=== PATIENT | male | born 1955 | race Caucasian/White ===

== ENCOUNTER → 2017-01-04 | Outpatient (CLI) | payer BC | END | disposition home or self-care (01) | LOC: C.RDSM 12:32 | PROVIDERS: ATTEND Physical Medicine & Rehabilitation Sports Medicine | DX: M25.561 Pain in right knee (principal) ==

== ENCOUNTER 2018-06-02 05:09 | Inpatient (IN) ==
--- NOTE | 2018-05-06 12:29 | Anesthesiology Consultation ---
Date of Service May 06, 2018 Assessment & Plan (1) Encounter for pre-operative examination: Plan: PCP CLEARANCE 05/18/18: "patient is an appropriate candidate for surgery without need for further preoperative testing." Chart Review Chart Review: Acceptable Risk for Surgery and Patient seen in Pre Admission Testing Teaching & Discussion Instructed NPO after midnight before surgery, except medications with 15 cc of water. Medication instructions provided according to the PAT guidelines. History Surgery Operation Date: 06/02/18 10:05 Proposed Procedures p Right Total Knee Arthroplasty - Ezequiel Pandey MD Height/Weight Height: 6 ft Weight: 102.6 kg Allergies Allergy/AdvReac Type Severity Reaction Status Date / Time No Known Allergies Allergy Verified 04/29/18 12:10 Medications Home Medications Medication Instructions Recorded Confirmed Last Taken meloxicam 2 tab PO QAM 04/29/18 04/29/18 Unknown ranitidine HCl 150 mg PO BID 04/29/18 04/29/18 Unknown Past Medical History Medical History Acid reflux Osteoarthritis Past Family History Family History Father Family history of esophageal cancer Mother Family history of breast cancer Past Surgical History Surgical History History of arthroscopy of right knee History of colonoscopy History of endoscopy Past Anesthesia History No Hx of Anesthesia Complications and No Family Hx of Anesthesia Complications History of PONV No Motion Sickness Screening History of Motion Sickness: No Social History Smoking Status: Never smoker Do You Dip or Chew Tobacco: No Hx Alcohol Use: Yes Alcohol type: beer alcohol intake frequency: holidays/special occasions only Hx Substance Use: No substance use type: does not use Exercise / Class Metabolic Activity II 4-5 Yardwork/Stairs/Walk up hill Review of Systems Pt denies any recent chest pain, shortness of breath, palpitations, cough, fever or URI. Physical Exam Vital Signs BP: 106/72 P: 53bpm SPO2: 96% RA T: 98.1 F R: 16 ENMT Mouth: no dental restorations, no chipped teeth and no loose teeth Thyromental Distance: > or= 3.5 Finger Breadths (3.5) Mallampati Class: II Neck normal visual inspection; neck extension not limited Respiratory normal respiratory effort Auscultation: lungs clear to auscultation bilaterally Cardiovascular Rate/Rhythm: regular rhythm and + bradycardic Heart Sounds: no murmur Vessels: no carotid bruit Extremities: no edema Testing Electrocardiogram Date: 05/06/18 Findings: + SB @ (51) Chest X-Ray Date: 05/06/18 Findings: + NAD Laboratory Results 05/06/18 12:50 05/06/18 12:50 Blood Type A Positive 05/06/18 12:50 Antibody Screen NEGATIVE 05/06/18 12:50 PT 10.1 Seconds (9.0-12.0) 05/06/18 12:50 INR 1.0 (0.9-1.1) 05/06/18 12:50 APTT 28.1 Seconds (21.0-31.0) 05/06/18 12:50 Urine Color Yellow 05/06/18 12:50 Urine Appearance Clear (Clear) 05/06/18 12:50 Urine pH 6.0 (4.5-7.5) 05/06/18 12:50 Ur Specific Moore 1.029 (1.000-1.030) 05/06/18 12:50 Urine Protein Negative (Negative) 05/06/18 12:50 Urine Glucose (UA) Negative (Negative) 05/06/18 12:50 Urine Ketones Trace (Negative) H 05/06/18 12:50 Urine Nitrite Negative (Negative) 05/06/18 12:50 Ur Leukocyte Esterase Negative (Negative) 05/06/18 12:50
--- NOTE | 2018-05-06 12:38 | PAT Medication Instructions ---
Medication Instructions Date of Service May 06, 2018 Home Medications meloxicam 2 tab PO QAM ranitidine HCl 150 mg PO BID ASK your surgeon for instructions meloxicam 2 tab PO QAM (to be held x 5 days before surgery per surgeon) Take morning of surgery With a small sip of water, OTHERWISE NOTHING TO EAT OR DRINK AFTER MIDNIGHT: ranitidine HCl 150 mg PO BID Take evening before surgery ranitidine HCl 150 mg PO BID Other Notes If you have any questions please call us at [phone] or [phone] or [phone] or [phone]
--- NOTE | 2018-05-06 13:13 | XRay Report ---
XR chest Pre-admission PA/Lat HISTORY: 62 years-old Male PAT preoperative exam. No acute chest complaints. COMPARISON: None available TECHNIQUE: PA and lateral views of the chest FINDINGS: Cardiac mediastinal and hilar silhouettes are within normal limits. No pneumothorax, pleural effusion , focal airspace consolidation or overt pulmonary edema. Degenerative changes of the shoulders and sp ine. IMPRESSION: No acute process. The above report was generated using voice recognition software. It may contain grammatical, syntax o r spelling errors. Electronically signed by: Reji Johansen M.D. 05/06/2018 1:11 PM
[2018-05-06 13:29] LABS: Basophils # (auto) 0.06 K/uL (0-0.2); Eosinophils # (auto) 0.41 K/uL (0-0.5); Eosinophils % (auto) 6.9 %; Hemoglobin 13.5 g/dL (14.0-18.0); Immature Granulocytes # (auto) 0.01 K/uL (0.00-0.02); Immature Granulocytes % (auto) 0.2 %; Lymphocytes # (auto) 1.91 K/uL (1.2-3.4); Lymphocytes % (auto) 32.4 %; Mean Corpuscular Hgb Conc 32.9 g/dL (32-36); Mean Corpuscular Volume 93.4 fL (80-100); Mean Platelet Volume 9.4 fL (7.4-10.4); Monocytes % (auto) 6.8 %; Neutrophils # (auto) 3.11 K/uL (1.4-6.5); Neutrophils % (auto) 52.7 %; Platelet Count 235 K/uL (130-400); RDW Coefficient of Variation 13.3 % (11.5-14.5); RDW Standard Deviation 45.8 fL (36.4-46.3); Red Blood Count 4.39 M/uL (4.7-6.1)
[2018-05-06 13:32] LABS: BUN Creatinine Ratio 39.8 (10-20); Calcium 9.1 mg/dl (8.5-10.1); Creatinine Clr Calc Pharmacy 117.3 ml/min; Est GFR (African American) 110.8; Est GFR (Non-African American) 95.6; Potassium 4.6 mmol/L (3.5-5.1)
[2018-05-06 13:48] LABS: Partial Thromboplastin Ratio 1.1; Partial Thromboplastin Time 28.1 Seconds (21.0-31.0); Prothrombin Time 10.1 Seconds (9.0-12.0)
[2018-05-06 14:55] LABS: Appearance Urine Clear (Clear); Bilirubin Urine Negative (Negative); Color Urine Yellow; Glucose Urine UA Negative (Negative); Ketones Urine Trace (Negative); Leukocyte Esterase Urine Negative (Negative); Nitrite Urine Negative (Negative); Protein Urine Negative (Negative); Specific Gravity Urine 1.029 (1.000-1.030); Urobilinogen Urine Negative (Negative)
--- NOTE | 2018-05-11 13:58 | History and Physical Report ---
DATE OF ADMISSION: 06/02/2018 CHIEF COMPLAINT: Right knee pain. HISTORY OF PRESENT ILLNESS: This 62-year-old white male presents to the office with his for evaluation of his right knee. He has had significant right knee pain for over a year. It has become swollen at times. He has a history of previous knee arthroscopy with meniscectomy on the right knee many years ago. There has been increasing pain over the last few years. It is now severe with weightbearing. He has tried cortisone injections as well as viscosupplementation injections without lasting improvement. He has also tried activity modification without improvement. No numbness or tingling. Pain is affecting his ADLs. It is worse with weightbearing. Preoperative imaging has been obtained. He elects to proceed with right total knee arthroplasty in hopes of alleviating his discomfort. PAST MEDICAL HISTORY: Significant for osteoarthritis, GERD, and tubular adenoma of the colon. PAST SURGICAL HISTORY: Septoplasty, right knee arthroscopy with partial meniscectomy, colonoscopy. ALLERGIES: NKDA. CURRENT MEDICATIONS: Meloxicam 7.5 mg daily, ranitidine 150 mg p.o. daily, Tylenol p.r.n. FAMILY HISTORY: Unremarkable. Father and uncle are . SOCIAL HISTORY: Patient is employed, . No tobacco use, no ETOH use. REVIEW OF SYSTEMS: A total of 10 systems reviewed and significant only for above stated conditions. PHYSICAL EXAMINATION: GENERAL: Well-developed and well-nourished middle aged white male, in no acute distress, sitting in a chair, alert and oriented. SKIN: Warm and dry, with good turgor. No rashes or lesions. No ecchymosis or erythema. HEENT: Normocephalic and atraumatic. Eyes: PERRLA, EOMI. Nares patent bilaterally, without turbinate enlargement. Oropharynx without erythema or exudate, no lesions noted. Uvula midline. Oral mucosa moist. Good dentition. Fillings are noted. HEART: RRR. No MGR. Bradycardic. LUNGS: Clear to auscultation bilaterally. No crackles, rhonchi, or wheezing. Good air movement. ABDOMEN: Bowel sounds present x4, soft, nontender. No organomegaly. No masses. MUSCULOSKELETAL: Right knee evaluation reveals no intraarticular effusion. He has significant discomfort with palpation over the medial compartment and peripatellar areas. No lateral joint line discomfort today. He has varus alignment. He lacks just a few degrees of terminal extension, flexion to greater than 110 degrees. Strength is 5/5 with good quad tone. Stable collateral ligaments. No defect in the patellar tendon or quadriceps tendon. Ambulatory with a very slightly antalgic gait. NEUROLOGIC: Gross sensation is intact across both lower extremities by soft touch. Cranial nerves II through XII are intact. IMAGING DATA: Radiographic imaging previously obtained shows end-stage DJD of the right knee. Periarticular osteophytes, subchondral sclerosis, and joint space narrowing are all present. End-stage disease worse in the medial compartment and patellofemoral compartment. He is getting lateral subluxation of the tibia. IMPRESSION: Right knee end-stage degenerative joint disease. PLAN: Postoperative prescriptions for Percocet and Coumadin will be provided at discharge from the hospital. Anticipate discharge to home with outpatient services. Prescription was provided for a walker. Preoperative lab work, EKG, and chest x-ray have been ordered. He is also seeing his PCP for medical clearance. Informed written consent will be obtained on the morning of surgery. Call with any other concerns.
[2018-06-02] MEDS: LR 500ML BOLUS, THEN 15ML/HR IV SCH ×3 (05:35→17:38)
[2018-06-02] MEDS ORDERED: ROPIVACAINE 0.5% HCL/PF 150 MG, BUPIVACAINE 0.5% MPF 30 ML, EPINEPHrine 0.15 MG, Ketoro... INFIL SCH (06:00)
[2018-06-02] MEDS ORDERED: TRANEXAMIC ACID 1,000 MG **IV Pre-op IV SCH (06:00)
[2018-06-02] MEDS ORDERED: LR 60ML/HR IV SCH (06:00)
[2018-06-02] MEDS ORDERED: CEFAZOLIN 2000MG 2,000 MG/15 ML SYR IV SCH (06:00)
--- NOTE | 2018-06-02 06:21 | History & Physical Bridge Note ---
Date of Service June 02, 2018 History & Physical Bridge Note I have examined the patient, reviewed the History & Physical and in the interval since the performance of the History & Physical I have noted the following changes of clinical significance:readdressed consent.no issues. no changes noted
[2018-06-02] MEDS ORDERED: BUPIVACAINE 0.5 % 5 MG/1 ML PF 10ML VIAL ONE (06:32)
[2018-06-02] MEDS ORDERED: ROPIVACAINE 0.5% 5 MG/ML 30 ML VIAL ONE (06:32)
[2018-06-02] MEDS ORDERED: fentaNYL citrate 100 MCG/2 ML VIAL ONE (06:35)
[2018-06-02] MEDS ORDERED: MIDAZOLAM HCL 1 MG/ML 2ML VIAL ONE ×2 (06:35→07:16)
[2018-06-02] MEDS ORDERED: LIDOCAINE HCL 2% 2 ML VIAL/AMP(20MG/ML) INFIL ONE (06:49)
[2018-06-02] MEDS ORDERED: PROPOFOL IV EMULSION 10 MG/ML 20 ML VIAL IV ONE ×2 (06:49→08:04)
[2018-06-02] MEDS ORDERED: ORTHO JOINT ANESTHETIC ONE (06:50)
[2018-06-02] MEDS ORDERED: POVIDONE-IODINE OP SOLN 30 ML BTL ONE (06:50)
[2018-06-02] MEDS ORDERED: fentaNYL citrate 100 MCG/2 ML VIAL IV PRN (07:32)
[2018-06-02] MEDS ORDERED: ONDANSETRON INJ 2 MG/ML 2 ML VIAL IV PRN ×2 (07:32→09:51)
[2018-06-02] MEDS ORDERED: ATROPINE SULFATE 0.1 MG/ML 10ML SYR IV PRN (07:32)
[2018-06-02] MEDS ORDERED: ePHEDrine sulfate 50 MG/ML AMP IV PRN (07:32)
[2018-06-02] MEDS ORDERED: PHENYLEPHRINE 100MCG/ML 5ML SYR ONE (07:45)
--- NOTE | 2018-06-02 08:38 | Post Operative Brief Note ---
Immediate Post Op Note v1 Date of Surgery June 02, 2018 Pre & Post Diagnosis Operation Date: 06/02/18 07:15 Pre-Op Diagnosis: Right Knee End-Stage Degenerative Joint Disease Post-Op Diagnosis: Right Knee End-Stage Degenerative Joint Disease Procedure Operation Date: 06/02/18 07:15 Actual Procedures p Right Total Knee Arthroplasty(Right) - Ezequiel Pandey MD Surgeon Ezequiel Pandey MD [facility] Estimated Blood Loss 100 Findings Consistent with Post-Op Diagnosis
--- NOTE | 2018-06-02 08:52 | Operative Report ---
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 Hewas prepped and draped in the usual sterile fashion. Please see Dr. Pandey's operative report for specifics of the procedure. I was present for the entire case from initial patient positioning through final wound closure. Assistance was provided in tissue retraction, hemostasis, trial implant placement, final implant placement, and final wound closure. Patient was taken to the recovery room in satisfactory condition. I attest to the content of the Intraoperative Record and any orders documented therein. Any exceptions are noted below.
--- NOTE | 2018-06-02 09:13 | Anesthesiology Progress Note ---
Date of Service June 02, 2018 Anesthesia Post Procedure Vital Signs Vital Signs: Temp Pulse Pulse Resp BP Pulse Ox 06/02/18 09:10 53 L 15 103/59 L 97 06/02/18 09:00 53 L 12 102/60 100 06/02/18 08:50 65 17 94/52 L 99 06/02/18 08:43 97.0 F L 68 16 110/67 96 06/02/18 05:39 98.4 F 81 18 129/92 95 Pain Intensity Right Knee: Pain Intensity: 2 Notes Mental Status: alert / awake / arousable and participated in evaluation Patient Amnestic to Procedure: Yes Nausea / Vomiting: adequately controlled Pain: adequately controlled Airway Patency, RR, SpO2: stable & adequate BP & HR: stable & adequate Hydration State: stable & adequate Neuraxial Anesthesia: was administered and sensory block is resolving Anesthetic Complications: no major complications apparent and Pt Satisfied with anesthetic care
--- NOTE | 2018-06-02 09:28 | Operative Report ---
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 POSTOPERATIVE DIAGNOSIS: Osteoarthritis with varus and flexion deformity, right knee. OPERATION PERFORMED: Cemented right total knee replacement. SUMMARY OF IMPLANTS: Size 4 posterior cruciate substituting right femur, size 4 mobile bearing tray tibia, oval dome 3 peg patella size 41, tibial insert rotating platform, posterior cruciate stabilized 4 x 15 insert, 2 bags of Palacos G cement. ESTIMATED BLOOD LOSS: 100 mL. CRYSTALLOID: Per anesthesia. PROPHYLAXIS: DVT prophylaxis with Coumadin. PERIOPERATIVE SITUATION: Medically cleared male with intractable knee pain with a varus deformity, chronic ACL deficiency, has severe osteoarthritis, medial compartment extending into patellofemoral joint and lateral compartment. DESCRIPTION OF PROCEDURE: Patient appropriately identified, site verified, consent verified. Antibiotics confirmed as being given. TXA confirmed as being given. The right lower extremity was prepped and draped in the usual routine fashion. Tourniquet inflated to 300 mmHg after exsanguination of limb with a rubber Esmarch bandage for a total of 50 minutes. Midline exposure utilized. Parapatellar arthrotomy performed. Synovectomy completed. Soft tissue releases and osteophytes resected and completed. Distal femur then entered. Cruciates resected. Tibia subluxated. Both menisci resected. Distal femur resected to 12 mm, proximal tibia resected to 4 mm. Extension gap was excellent. Femur was sized between a 5 and a 4, was measured 5, cut 4. Flexion gap was excellent. A box cut was then made, size 4 fit well. The tibia was subluxated, and the broaching and reaming carried out to a size 4 with a 15 mm spacer providing excellent extension and flexion gap control. The patella was sized to 41, it was resected leaving 17 mm. The trial tracked well when the seating holes were made. The wound was then injected with the Orthomix as well as posteriorly and around the incision. The wound was then irrigated. All trial implants removed. The wound was irrigated with Betadine and Pulsavac, the permanent cemented into position. After 12 minutes, the tourniquet deflated. After 14 minutes, the knee flexed. Minor cement removal was required. Wound was irrigated with Betadine and a permanent liner seated and then the knee reduced and closed in 60 degrees of flexion with #2 Vicryl, 2-0 Vicryl, and stainless steel clips. Appropriate dressing applied, and the patient transferred to recovery room in satisfactory condition having tolerated the procedure well. Pathology pending on bone. I attest to the content of the Intraoperative Record and any orders documented therein. Any exception s are noted below.
--- NOTE | 2018-06-02 09:34 | XRay Report ---
TWO VIEWS RIGHT KNEE CLINICAL HISTORY: Postoperative examination. FINDINGS: AP and crosstable lateral portable views of the right knee are obtained. A right knee arthr oplasty is in near anatomic alignment. There has been undersurface remodeling of the patella. No acut e fracture is seen. There are expected postoperative changes around the knee including skin clips, s oft tissue edema, and subcutaneous gas. IMPRESSION: Expected postoperative changes status post right knee arthroplasty. No acute fracture is seen. Electronically signed by: Hakeem Ochoa M.D. 06/02/2018 9:33 AM
[2018-06-02] MEDS ORDERED: METOCLOPRAMIDE HCL INJ 5 MG/ML 2 ML VIAL IV PRN (09:51)
[2018-06-02] MEDS ORDERED: HYDROmorphone INJ 0.5 MG/0.5 ML SYR IV PRN (09:51)
[2018-06-02] MEDS ORDERED: MAGNESIUM HYDROXIDE SUSP 30 ML UDC PO PRN (09:51)
[2018-06-02] MEDS ORDERED: NALOXONE HCL 0.4 MG/1 ML VIAL/CARP IV PRN (09:51)
[2018-06-02] MEDS ORDERED: ALUMINUM/MAGNESIUM SUSP 30 ML UDC PO PRN (09:51)
[2018-06-02] MEDS ORDERED: BISACODYL 10 MG SUPP PR PRN (09:51)
[2018-06-02] MEDS ORDERED: DiphenhydrAMINE HCL 50 MG/ML VIAL IV PRN (09:51)
[2018-06-02] MEDS ORDERED: TAMSULOSIN HCL 0.4 MG CAP PO PRN (09:51)
[2018-06-02] MEDS ORDERED: SODIUM CHLORIDE 0.9% 1000ML 1,000 ML IV SCH (09:51)
[2018-06-02] MEDS: DOCUSATE SODIUM 100 MG CAP PO SCH ×2 (11:12→21:36)
[2018-06-02] MEDS: MULTIVITAMIN TAB PO SCH (11:12)
[2018-06-02] MEDS: ORTHO WARFARIN NOMOGRAM SCH (11:55)
[2018-06-02] MEDS ORDERED: KETOROLAC 30 MG/ML VIAL IV PRN (12:00)
[2018-06-02] MEDS: ACETAMINOPHEN 1,000 MG/100 ML VIAL IV SCH ×2 (13:18→21:36)
--- NOTE | 2018-06-02 13:43 | Progress Note ---
DATE: 06/02/2018 Postop check status post right total knee replacement. Patient is doing well. He denies any chest pain, shortness of breath, fever, chills, nausea, vomiting, headache. Vital signs are stable. He is afebrile. On neurovascular check, femoral sciatic nerve is normal. Wound dressing is clean, dry, and intact. He is eating and drinking well. He has not voided yet. He does not feel full. ASSESSMENT: Doing well. Postop x-ray is excellent. Hep-Lock IV. Mobilize. Try to avoid straight cath if possible. Continue care pathway.
[2018-06-02] MEDS ORDERED: TRANEXAMIC ACID 1,000 MG in 0.9 % SODIUM CHLORIDE 100 ML IV SCH (14:00)
[2018-06-02] MEDS: CEFAZOLIN 2000MG 2,000 MG/15 ML SYR IV SCH ×2 (14:17→22:29)
[2018-06-02] MEDS ORDERED: WARFARIN SOD 5 MG TAB PO ONE (16:00)
[2018-06-02] MEDS: FERROUS GLUCONATE 324 MG TAB PO SCH (16:32)
[2018-06-02] MEDS ORDERED: SENNA 8.6 MG TAB PO SCH (21:00)
[2018-06-03] MEDS: OXYCODONE HCL IR 5 MG TAB (IMMEDIATE RELEASE) PO PRN ×2 (02:03→07:09)
[2018-06-03] MEDS: ACETAMINOPHEN 1,000 MG/100 ML VIAL IV SCH (05:05)
[2018-06-03 06:18] LABS: Hematocrit (blood only) 33.6 % (42-52); Hemoglobin 11.3 g/dL (14.0-18.0); Mean Corpuscular Hgb Conc 33.6 g/dL (32-36); Mean Corpuscular Volume 92.1 fL (80-100); Mean Platelet Volume 9.1 fL (7.4-10.4); Platelet Count 198 K/uL (130-400); RDW Coefficient of Variation 13.1 % (11.5-14.5); RDW Standard Deviation 44.3 fL (36.4-46.3); Red Blood Count 3.65 M/uL (4.7-6.1); White Blood Count 10.34 K/uL (4.8-10.8)
[2018-06-03 06:29] LABS: INR 1.1 (0.9-1.1)
[2018-06-03 06:54] LABS: BUN Creatinine Ratio 23.1 (10-20); Calcium 8.5 mg/dl (8.5-10.1); Creatinine Clr Calc Pharmacy 111.3 ml/min; Est GFR (African American) 108.5; Est GFR (Non-African American) 93.6
[2018-06-03] MEDS: DOCUSATE SODIUM 100 MG CAP PO SCH (07:09)
[2018-06-03] MEDS: FERROUS GLUCONATE 324 MG TAB PO SCH (07:09)
[2018-06-03] MEDS: MULTIVITAMIN TAB PO SCH (07:09)
--- NOTE | 2018-06-03 07:23 | Progress Note ---
DATE: 06/03/2018 SUBJECTIVE: Postop day #1 status post right total knee replacement. The patient is doing well. Denies any fever, chest pain, shortness of breath, nausea, vomiting or headache. OBJECTIVE: Vital signs are stable. He is afebrile. Neurovascular check femoral sciatic nerve is normal. Wound dressing clean, dry and intact. Hematocrit stable at 34. INR is 1.1. ASSESSMENT AND PLAN: Doing well. Discharged to home today, Coumadin 4 mg. Check INR on Wednesday. Follow up in roughly 2 weeks for staple removal.
[2018-06-03] MEDS ORDERED: dexAMETHasone 10 MG in SYRINGE 0 ML IV SCH (08:00)
[2018-06-03] MEDS: ORTHO WARFARIN NOMOGRAM SCH (08:21)
--- NOTE | 2018-06-03 09:00 | Orthopedic Progress Note ---
Date of Service June 03, 2018 Assessment & Plan (1) Status post total knee replacement, right: PT/OT this AM Plan on discharge home today with home health visits for INR checks DVT prophylaxis with Coumadin and TEDs Goal INR 1.8-2.2 Pain control with PO meds Ice with EZ wrap Immobilizer for 1st 48 hrs post op Walker assistance F/u at [facility] in 2 wks for staple removal Subjective Patient is day 1 s/p Right total knee arthroplasty. Doing very well. No complaints. Is ready to go home later today. Denies CP, SOB, Nausea, vomiting , diarrhea, fever, chills or sweats. Dressing clean, dry and intact. States that block "wore off" around 3 am but pain is well controlled with PO meds. Physical Exam 2 Vital Signs (Past 24 Hours): Last Vital Signs Temp 36.7 C 06/03/18 07:44 Pulse 65 06/03/18 07:44 Resp 18 06/03/18 07:44 BP 117/75 06/03/18 07:44 Pulse Ox 93 06/03/18 07:44 Physical Exam: Right Knee: Dressing removed. No drainage noted. Pt able to depict light sensation to touch circumferentially around incision site. Mild edema. No erythema, ecchymosis, warmth or fluctuance noted. Able to perform SLRT. Calf soft and supple w/o tenderness. NV intact in Rt LE. Periph pulses easily palpable. Cap refill < 2 seconds.
--- NOTE | 2018-06-03 09:39 | Discharge Summary ---
CHIEF COMPLAINT: Right knee pain. HISTORY OF PRESENT ILLNESS: Admitted for elective right total knee replacement. Hospital course has been uneventful. The patient is ready for discharge today after PT, OT. PAST MEDICAL HISTORY: Remarkable for osteoarthritis, GERD, tubular adenoma of the colon. PAST SURGICAL HISTORY: Remarkable for septoplasty, right knee arthroscopy, partial meniscectomy, colonoscopies. ALLERGIES: None. PREADMISSION MEDICATIONS: Include meloxicam, ranitidine, Tylenol. Will discontinue the Meloxicam. Add Coumadin and p.r.n. pain medication, see prescription. Keep INR 1.8-2.2. FAMILY HISTORY: Unremarkable. SOCIAL HISTORY: Reveals he is employed. . No tobacco or alcohol use. ASSESSMENT AND PLAN: Overall, doing well, status post right total knee replacement, discharged home today after PT, OT. Discharged on 4 mg of Coumadin. Check INR on Wednesday. P.r.n. use of pain medication, see prescription.
[2018-06-03] MEDS ORDERED: WARFARIN SOD 5 MG TAB PO SCH ×2 (16:00)
--- NOTE | 2018-06-03 17:33 | Anesthesiology Progress Note ---
Date of Service June 03, 2018 Anesthesia Post Procedure Vital Signs Vital Signs: Temp Pulse Pulse Resp BP Pulse Ox 06/03/18 09:29 36.7 C 60 65 18 117/75 93 06/03/18 07:44 36.7 C 65 18 117/75 93 06/03/18 03:59 36.8 C 69 17 108/69 93 06/02/18 23:01 36.7 C 63 18 117/75 93 06/02/18 18:56 36.4 C L 70 16 147/85 H 94 Pain Intensity Right Knee: Pain Intensity: 6 Notes Mental Status: alert / awake / arousable and participated in evaluation Patient Amnestic to Procedure: Yes Nausea / Vomiting: adequately controlled Pain: adequately controlled Airway Patency, RR, SpO2: stable & adequate BP & HR: stable & adequate Hydration State: stable & adequate Neuraxial Anesthesia: was administered and sensory block resolved Anesthetic Complications: no major complications apparent and Pt Satisfied with anesthetic care
== END 2018-06-03 12:55 | disposition home health service (06) | DRG 470 ==
LOC: ASU 05:09 → 3E 08:50